=== PATIENT | female | born 1980 | race Two or more races ===

== ENCOUNTER 2019-05-05 18:48 | Emergency (ER) | payer SELFPAY ==
[~2019-05-05] VITALS: Ht 162.6 cm; Wt 74.8 kg
[2019-05-05 18:50] VITALS: BP 149/94
--- NOTE | 2019-05-05 18:50 | NUR ---
ED Nurse Note: Patient walked in to ER c/o flu like symptoms. Stated was exposed to virus, with the patient that was diagnosed with pradhan virus later. AAO x4, VSS at this time. Patient c/o nose congestion, head ache.
[2019-05-05 21:40] VITALS: BP 149/94
--- NOTE | 2019-05-05 21:55 | NUR ---
ED Nurse Note: Patient was triaged, swabed, but leave without being seen by PA.
--- NOTE | 2019-05-05 22:07 | Emergency Room Report ---
History of Present Illness General Chief Complaint: Flu Like Symptoms Source: Patient Present Illness HPI 39-year-old female with no known significant past medical history here requesting a coronavirus testing. 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 Patient appears to have flulike symptoms Cough and congestion. Also has a 6-month-old baby with here which reports she took to work with her. Patient was placed in 10. Patient had a swab done for flu and Covid 19 however left before I went into the 10th to see her as her baby was crying. COVID-19 risk:Travel to affect: Yes Has patient experienced pradhan: Yes Coronavirus symptoms experienc: Flu-Like Symptoms Allergies: Coded Allergies: No Known Allergies (Unverified , 05/05/19) Patient History Past Medical History: see triage record Past Surgical History: none Pertinent Family History: none Last Menstrual Period: 04/17/2019 Now: No Immunizations: UTD Reviewed Nursing Documentation: PMH: Agreed; PSxH: Agreed Nursing Documentation-PMH Past Medical History: No Stated History Review of Systems All Other Systems: negative except mentioned in HPI Physical Exam Vital Signs Date Time Temp Pulse Resp B/P (MAP) Pulse Ox O2 Delivery O2 Flow Rate FiO2 05/05/19 18:21 98.2 85 20 149/94 (112) 98 Room Air Sp02 EP Interpretation: reviewed, normal General Appearance: well appearing - Patient left without me seeing her Medical Decision Making PA Attestation All my diagnosis and treatment plans were reviewed ad discussed with my supervising physician Dr. Gonzales Diagnostic Impression: Primary Impression: Exposure to SARS-associated coronavirus ER Course 39-year-old female with no known significant past medical history here requesting a coronavirus testing. 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 Patient appears to have flulike symptoms Cough and congestion. Also has a 6-month-old baby with here which reports she took to work with her. Patient was placed in 10. Patient had a swab done for flu and Covid 19 however left before I went into the 10th to see her as her baby was crying. Ddx considered but are not limited to: Coronavirus strep pharyngitis, URI, tonsillitis, peritonsillar abscess, influneza Vital signs: are WNL, pt. is afebrile H&PE are most consistent with: Exposures or coronavirus ORDERS:Covid 19 , rapid influenza test ED INTERVENTIONS: None required at this time. Patient left without being seen Last Vital Signs Date Time Temp Pulse Resp B/P (MAP) Pulse Ox O2 Delivery O2 Flow Rate FiO2 05/05/19 21:40 98.2 20 149/94 98 Room Air 05/05/19 18:50 85 Disposition: LEFT W/OUT BEING SEEN Javid King May 05, 2019 22:07
== END 2019-05-05 21:40 | disposition left against medical advice (07) ==
LOC: EDBD 18:48 → EMR 19:00
DX: R05 Cough (principal); Z20.828 Contact with and (suspected) exposure to other viral communicable diseases; Z53.21 Procedure and treatment not carried out due to patient leaving prior to being seen by health care provider
CPT/HCPCS: 86710; 99281